=== PATIENT | male | born 1955 | race Caucasian/White ===

== ENCOUNTER 2019-04-07 08:18 | Emergency (ER) | payer OTHER ==
[~2019-04-07] VITALS: Ht 172.7 cm; Wt 76.2 kg
[~2019-04-07 08:18] MED LIST: MULT-2410 PO; TAMS0.4C96 PO
[2019-04-07 08:24] VITALS: BP 156/91
--- NOTE | 2019-04-07 08:24 | NUR ---
Patient ambulated to bed 4. RN evaluating patient at bedside.
--- NOTE | 2019-04-07 08:44 | NUR ---
global position system technician at bedside.
--- NOTE | 2019-04-07 08:44 | NUR ---
COMPLETED 1WK COURSE OF ANTIBIOTIC DX PNEUMONIA COUGH PERSIST AND WITH FORCEFUL COUGH CAUSES ANTERIOR CHEST WALL PAIN DENIES PHLEGM NOW---- FULL CLEAR SPEECH WITH MILD NASAL FLARE NOTED ONLY-- RECENT HERNIATED DISK REPAIR; WEARING A SOFT C-COLLAR
--- NOTE | 2019-04-07 08:44 | NUR ---
CXR AT BEDSIDE
[2019-04-07 09:11] VITALS: BP 156/91
--- NOTE | 2019-04-07 09:11 | NUR ---
Patient discharged with v/s stable. Written and verbal after care instructions given and explained. Patient alert, oriented and verbalized understanding of instructions. Ambulatory with steady gait. All questions addressed prior to discharge. ID band removed. Patient advised to follow up with PMD. Rx of PROMETHAZINE/DEXTROMETHORPHAN given. Patient educated on indication of medication including possible reaction and side effects. Opportunity to ask questions provided and answered.
== END 2019-04-07 09:10 | disposition home or self-care (01) ==
LOC: MED 08:18
DX: J40 Bronchitis, not specified as acute or chronic (principal); Z89.021 Acquired absence of right finger(s); Z98.890 Other specified postprocedural states; Z79.899 Other long term (current) drug therapy
CPT/HCPCS: 71045; 99283; Q0092